=== PATIENT | male | born 1950 | race American Indian/Alaskan Native ===

== ENCOUNTER 2018-09-14 17:52 | Emergency (ER) | payer OTHER ==
--- NOTE | 2018-09-14 17:57 | Emergency Department Report ---
ED General Adult HPI - General Stated complaint: BLEEDING Time Seen by Provider: 09/14/18 17:55 Source: patient, EMS Mode of arrival: Stretcher Limitations: No Limitations - History of Present Illness Initial comments: Patient is a 68-year-old male the penis emergency room for bleeding from his dialysis shunt. Patient states he is having dialysis and after they disconnected him the shot did not stop bleeding. Patient brought in by EMS. EMS states that it is a continuous stream and placed a pressure clamp onto the site. Patient is still bleeding through the dressing. Patient denies pain. Patient denies dizziness. Patient denies weakness. Patient denies chest pain s hortness of breath or patient denies fever or chills. -: Sudden - Related Data Allergies Allergy/AdvReac Type Severity Reaction Status Date / Time No Known Allergies Allergy Verified 09/14/18 18:04 ED Review of Systems ROS: Stated complaint: BLEEDING Other details as noted in HPI Constitutional: denies: chills, fever Eyes: denies: eye pain, eye discharge, vision change ENT: denies: ear pain, throat pain Respiratory: denies: cough, shortness of breath, wheezing Cardiovascular: denies: chest pain, palpitations Endocrine: no symptoms reported Gastrointestinal: denies: abdominal pain, nausea, diarrhea Genitourinary: denies: urgency, dysuria Musculoskeletal: denies: back pain, joint swelling, arthralgia Skin: denies: rash, lesions Neurological: denies: headache, weakness, paresthesias Psychiatric: denies: anxiety, depression Hematological/Lymphatic: denies: easy bleeding, easy bruising ED Course Vital Signs 09/14/18 09/14/18 17:55 21:52 Temperature 97.9 F Pulse Rate 75 81 Respiratory 18 Rate Blood Pressure 155/89 Blood Pressure 162/83 [Right] O2 Sat by Pulse 99 Oximetry - Reevaluation(s) Reevaluation #1: Patient still bleeding from HD shunt. Pressure drsg Reapplied and vascular surgeon will be consulted. 09/14/18 18:45 Reevaluation #2: Vascular surgery saw patient and placed Dermabond and sutures at site and has controlled the bleeding. Sterile dressing applied by vascular surgery. Vascular surgery states the patient is stable for discharge. Patient discharged home. Discussed all results with patient. Patient is stable for discharge. Patient will be discharged home. Patient agrees to plan of care. Patient given discharge instructions. Patient voiced understanding of discharge instr uctions. 09/14/18 21:37 - Consultations Consultation #1: Vascular surgery consultation. Dr. Bunch to see patient 09/14/18 19:01 Vascular surgery saw patient and performed a procedure to stop the bleeding. See notes by vascular surgery. 09/14/18 21:37 ED Medical Decision Making - Lab Data Result diagrams: 09/14/18 18:10 09/14/18 18:10 - Medical Decision Making Patient is a 68-year-old male presents to emergency room for bleeding dialysis shunt. Patient bleeding continued even with direct pressure. Vascular surgery consult and for surgery manage the bleeding shunt and was able to stop the bleeding with sutures and Dermabond. Sterile dressing was applied. Patient stable for discharge. Patient given discharge instructions. - Differential Diagnosis bleeding vascular shunt Critical Care Time: Yes Critical care attestation.: If time is entered above; I have spent that time in minutes in the direct care of this critically ill patient, excluding procedure time. Critical Care Time: 35 minutes ED Disposition Clinical Impression: Bleeding from dialysis shunt Qualifiers: Encounter type: initial encounter Qualified Code(s): T82.838A - Hemorrhage due to vascular prosthetic devices, implants and grafts, initial encounter Disposition: DC-01 TO HOME OR SELFCARE Is pt being admited?: No Does the pt Need Aspirin: No Condition: Stable Instructions: Chronic Kidney Disease (ED), End-Stage Kidney Disease (ED) Additional Instructions: Patient to follow-up with primary care in 2-3 days. Patient to return to ER if condition worsens. Patient to increase water. Patient to rest. Patient to continue all meds. Referrals: AMPARO UK MD [Primary Care Provider] - 2-3 Days MATTIE BUNCH MD [Staff Physician] - 2-3 Days Time of Disposition: 21:40
[2018-09-14 18:34] LABS: Hematocrit 46.3 % (35.5-45.6); Hemoglobin 14.8 gm/dl (11.8-15.2); Mean Corpuscular HGB Conc 32 % (32-34); Mean Corpuscular Volume 85 fl (84-94); Platelet Count 180 K/mm3 (140-440); Red Blood Count 5.48 M/mm3 (3.65-5.03); Red Cell Distribution Width 16.3 % (13.2-15.2)
[2018-09-14 18:44] LABS: INR 1.05 (0.87-1.13); Partial Thromboplastin Time 30.6 Sec. (24.2-36.6)
[2018-09-14 19:41] LABS: Albumin 5.2 g/dL (3.9-5); Calcium 9.4 mg/dL (8.4-10.2)
--- NOTE | 2018-09-14 21:31 | Consultation ---
History of Present Illness - Reason for Consult Consult date: 09/14/18 bleeding and malfunctioning left upper extremity AV graft - History of Present Illness Patient with a history of end-stage renal disease on hemodialysis who presents with a 2 episode history of prolonged bleeding following dialysis cannulation and needle removal. Following needle removal today, unable to stop the patient 's bleeding from his access sites. The patient had a pressure dressing on at time of examination. There is a palpable thrill throughout his fistula with visible shoulder and chest wall collaterals. Past History Past Medical History: dialysis, ESRD Past Surgical History: Other (left upper extremity brachial cephalic fistula) Social history: lives with family Family history: no significant family history Medications and Allergies Allergies Allergy/AdvReac Type Severity Reaction Status Date / Time No Known Allergies Allergy Verified 09/14/18 18:04 Review of Systems All systems: negative Exam - Constitutional Vitals: Temp Pulse Resp BP Pulse Ox 97.9 F 75 18 155/89 99 09/14/18 17:55 09/14/18 17:55 09/14/18 17:55 09/14/18 17:55 09/14/18 17:55 General appearance: Present: no acute distress - EENT Eyes: Present: EOM intact ENT: hearing intact - Neck Neck: Present: supple, normal ROM - Respiratory Respiratory effort: normal - Extremities Extremities: abnormal (bleeding from left upper extremity AV fistula) - Abdominal General gastrointestinal: Present: deferred Male genitourinary: Present: deferred - Rectal Rectal Exam: deferred - Psychiatric Psychiatric: appropriate mood/affect, cooperative Results - Labs CBC & Chem 7: 09/14/18 18:10 09/14/18 18:10 Labs: Abnormal lab results 09/14/18 09/14/18 Range/Units 18:10 18:10 WBC 4.2 L (4.5-11.0) K/mm3 RBC 5.48 H (3.65-5.03) M/mm3 Hct 46.3 H (35.5-45.6) % MCH 27 L (28-32) pg RDW 16.3 H (13.2-15.2) % Chloride 94.7 L (98-107) mmol/L BUN 38 H (9-20) mg/dL Creatinine 5.4 H (0.8-1.5) mg/dL Total Protein 9.6 H (6.3-8.2) g/dL Albumin 5.2 H (3.9-5) g/dL Assessment and Plan Planned procedure placement for bleeding cessation. 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 Venous outflow stenosis causing increased pressure within the fistula and prolonged bleeding. Patient typically follows up at the [facility]. If he is unable to have his fistula evaluated and treated on Monday, the patient was given our card.
--- NOTE | 2018-09-14 21:34 | Post Operative Note ---
Pre-op diagnosis: bleeding from AV fistula Post-op diagnosis: same Findings: Bleeding from inferior dialysis access. His bleeding had slowed significantly from initial presentation secondary to pressure Procedure: pursestring suture placed around the fistula access site with cessation of bleeding., Dermabond and compression dressing placed Anesthesia: local Surgeon: MATTIE ANTOINE Estimated blood loss: minimal Pathology: none Condition: stable Disposition: other (ER)
[2018-09-14 21:53] VITALS: BP 162/83
== END 2018-09-14 21:50 | disposition home or self-care (01) ==
LOC: ED 17:52
DX: T82.838A Hemorrhage due to vascular prosthetic devices, implants and grafts, initial encounter (principal); Y92.89 Other specified places as the place of occurrence of the external cause
CPT/HCPCS: 36415; 80053; 85027; 85610; 85730